=== PATIENT | female | born 1930 | race Caucasian/White ===

== ENCOUNTER 2017-08-21 15:28 | Inpatient (IN) | payer MEDICARE, BC ==
[~2017-08-21] VITALS: Ht 172.7 cm; Wt 61.7 kg
--- NOTE | 2017-08-21 15:40 | NUR ---
radha from home dt witnessed syncopal episode while using bathroom. Patient is a/ox 3 at this time, breathing even and unlabored. No SOB. vitals stable, NAD. No neuro deficits noted. Safety and comfort measures in place. MD at bedside for eval.
[2017-08-21 15:45] LABS: BASOPHILS % (AUTO) 0.5 % (0.0-2.0); EOSINOPHILS # (AUTO) 0.1 /CMM (0.0-0.7); EOSINOPHILS % (AUTO) 1.4 % (0.0-6.0); HEMATOCRIT 38 % (33-45); HEMOGLOBIN 12.6 g/dL (11.5-14.8); LYMPHOCYTES # (AUTO) 1.7 /CMM (0.8-4.8); LYMPHOCYTES % (AUTO) 20.3 % (20.0-44.0); MEAN CORPUSCULAR HEMOGLOBIN 28 PG (26.0-33.0); MEAN CORPUSCULAR HGB CONC 33 g/dl (31.0-36.0); MEAN CORPUSCULAR VOLUME 83 fL (82-100); MONOCYTES # (AUTO) 0.6 /CMM (0.1-1.30); MONOCYTES % (AUTO) 6.6 % (2.0-12.0); NEUTROPHILS % (AUTO) 71.2 % (43.0-81.0); PLATELET COUNT (AUTO) 185 /CMM (150-450); RDW COEFFICIENT OF VARIATION 13.8 (11.5-15.0); RED BLOOD CELL COUNT(AUTO) 4.55 MIL/uL (4.0-5.2); WHITE BLOOD COUNT (AUTO) 8.4 K/uL (4.3-11.0)
[2017-08-21 15:55] LABS: CALCIUM, SERUM 8.9 mg/dL (8.5-10.1); CARBON DIOXIDE 28 mmol/L (21-32); CHLORIDE 105 mmol/L (98-107); CREATININE 0.8 mg/dL (0.6-1.3); GLUCOSE 129 mg/dL (74-106); POTASSIUM 3.6 mmol/L (3.5-5.1); SODIUM SERUM 139 mmol/L (136-145); UREA NITROGEN, BLOOD 27 mg/dL (7-18)
[2017-08-21 15:59] LABS: INR 0.98 (0.85-1.15)
[2017-08-21] MEDS ORDERED: IV NS 0.9% 500 ML BAG IV ONE (16:00)
[2017-08-21 16:03] LABS: TROPONIN I < 0.017 ng/mL (0.00-0.056)
[2017-08-21 16:11] LABS: ALANINE AMINOTRANSFERASE 33 U/L (12-78); ALBUMIN 3.3 g/dL (3.4-5.0); ALKALINE PHOSPHATASE 94 U/L (46-116); ASPARTATE AMINOTRANSFERASE 28 U/L (15-37); BILIRUBIN,DIRECT 0.2 mg/dL (0.0-0.2); BILIRUBIN,TOTAL 0.4 mg/dL (0.2-1.0)
[2017-08-21] MEDS ORDERED: ESCI5TAB PO (16:22)
[2017-08-21] MEDS ORDERED: RIVA6CAP5 PO (16:22)
[2017-08-21] MEDS ORDERED: MEMA28CA PO (16:22)
[2017-08-21] MEDS ORDERED: ASPI-1152 PO (16:22)
[2017-08-21] MEDS ORDERED: SIMV20TA6 PO (16:22)
[2017-08-21] MEDS ORDERED: CHOL200026 PO (16:22)
[2017-08-21] MEDS ORDERED: OLAN2.5T3 PO (16:22)
--- NOTE | 2017-08-21 17:03 | NUR ---
PAGED EPIC FOR PANEL
--- NOTE | 2017-08-21 17:07 | NUR ---
CALLED NURSE SUP FOR TELE BED
[2017-08-21] MEDS ORDERED: IV NS 0.9% 1,000 ML IV PRN (17:14)
[2017-08-21] MEDS ORDERED: MAG HYDROX/AL HYDROX/SIMETH 30 ML UDC PO PRN (17:30)
[2017-08-21] MEDS ORDERED: HYDROCODONE/APAP 5/325MG 1 EACH TABLET PO PRN (17:30)
[2017-08-21] MEDS ORDERED: OLANZAPINE 2.5 MG TABLET PO SCH (17:30)
[2017-08-21] MEDS ORDERED: ACETAMINOPHEN 325 MG TABLET PO PRN (17:30)
[2017-08-21] MEDS ORDERED: ONDANSETRON HCL/PF 4 MG/2 ML VIAL IVP PRN (17:30)
[2017-08-21] MEDS ORDERED: Z GUARD REMEDY 2 OZ OINT TP PRN (17:30)
[2017-08-21] MEDS ORDERED: MAGNESIUM HYDROXIDE 30 ML UDC PO PRN (17:30)
--- NOTE | 2017-08-21 17:47 | NUR ---
PATIENT TRANSPORTED TO [facility] VIA ACLS PROTOCOL. RNCHERELLE TO PROVIDE ROBERT.
--- NOTE | 2017-08-21 17:50 | NUR ---
TELE/RN OPENING NOTES PT RECEIVED TO UNIT FROM ER VIA [facility]INATA. A/OX1-2, ON ROOM AIR, BREATHING EVEN AND UNLABORED. DENIES PAIN, IN NO SIGNS OF DISTRESS. IV TO LAC PATENT AND INTACT. PLACED ON TELE MONITOR, SHOWING SINUS RHYTHM WITH HR 83. ORIENTED PT AND FAMILY TO ROOM AND CALL LIGHT. MIRI WYNN [phone], CELL= [phone] BED IN LOW/LOCKED POSITION WITH CALL LIGHT IN REACH. SIDE RAILS UPX3 AND BED ALARM ON FOR SAFETY. WILL CONTINUE TO MONITOR
[2017-08-21 18:00] VITALS: BP 148/70
[2017-08-21] MEDS: CHOLECALCIFEROL 1,000 UNIT TABLET (VIT D3) PO SCH (18:47)
[2017-08-21 20:00] VITALS: BP 131/70
[2017-08-21] MEDS ORDERED: QUETIAPINE FUMARATE 25 MG TABLET PO PRN (21:00)
[2017-08-21] MEDS ORDERED: LORAZEPAM INJ 2 MG/ML VIAL IV ONE (21:00)
--- NOTE | 2017-08-21 21:00 | NUR ---
TELE/RN NOTES PT BECOMING AGITATED, ATTEMPTING TO PULL OUT IV, UNCOOPERATIVE WITH CARE. DAUGHTER AT BEDSIDE FOR SUPPORT. MULTIPLE ATTEMPTS TO REDIRECT BUT UNSUCCESSFUL. SPOKE TO DR MONTOYA WITH ORDERS FOR ONE TIME DOSE OF ATIVAN 0.5MG IV AND PRN SEROQUEL 12.5MG Q6H PO. ORDERS READBACK PER PROTOCOL. WILL CARRY OUT
--- NOTE | 2017-08-21 21:15 | NUR ---
TELE/RN NOTES TECH AT BEDSIDE FOR CAROTID ULTRASOUND
[2017-08-21] MEDS ORDERED: SIMVASTATIN 20 MG TABLET PO SCH (22:00)
[2017-08-22] VITALS: BP 118/59
[2017-08-22 04:00] VITALS: BP 135/66
--- NOTE | 2017-08-22 07:00 | NUR ---
TELE/RN CLOSING NOTES PT AWAKE, SITTING UP IN BED. A/OX1, DAUGHTER AT BEDSIDE. CALM AT THIS TIME. ON TELE MONITOR SHOWING SR WITH HR 66. ON ROOM AIR, BREATHING EVEN AND UNLABORED. NO S/S OF SOB OR PAIN. KEPT CLEAN AND DRY DURING SHIFT. TURNED/REPOSITIONED Q2H. IV TO LAC PATENT AND INTACT RUNNING IVF ORDERED. KEPT PT COMFORTABLE, ALL NEEDS MET. BED IN LOW/LOCKED POSITIONED WITH CALL LIGHT IN REACH. SIDE RAILS UPX2 WITH BED ALARM ON FOR SAFETY. ENDORSED TO DAY SHIFT RN ROBERT.
--- NOTE | 2017-08-22 07:15 | NUR ---
telephoto engineer initial notes Received patient in bed, awake, head of bed elevated, no SOB or distress noted, on room air and tolerated well. Alert and oriented x 1, daughter at bedside. IV intact and patent, IVF infusing well. On tele monitor SR heart rate of 66, no complaint of pain or discomfort at this time. Patient is NPO at this time for cardiac consult. Kept patient clean and comfortable in bed, call light with in patient reach, will continue to monitor accordingly.
[2017-08-22 08:00] VITALS: BP 125/61
[2017-08-22] MEDS ORDERED: IV NS 0.9% 1,000 ML IV PRN (08:15)
[2017-08-22 08:44] LABS: BASOPHILS % (AUTO) 0.6 % (0.0-2.0); EOSINOPHILS # (AUTO) 0.1 /CMM (0.0-0.7); EOSINOPHILS % (AUTO) 1.1 % (0.0-6.0); HEMATOCRIT 39 % (33-45); HEMOGLOBIN 13.1 g/dL (11.5-14.8); LYMPHOCYTES # (AUTO) 1.1 /CMM (0.8-4.8); LYMPHOCYTES % (AUTO) 15.6 % (20.0-44.0); MEAN CORPUSCULAR HEMOGLOBIN 29 PG (26.0-33.0); MEAN CORPUSCULAR HGB CONC 34 g/dl (31.0-36.0); MEAN CORPUSCULAR VOLUME 84 fL (82-100); MONOCYTES # (AUTO) 0.4 /CMM (0.1-1.30); MONOCYTES % (AUTO) 6.1 % (2.0-12.0); NEUTROPHILS # (AUTO) 5.4 /CMM (1.8-8.9); NEUTROPHILS % (AUTO) 76.6 % (43.0-81.0); PLATELET COUNT (AUTO) 177 /CMM (150-450); RDW COEFFICIENT OF VARIATION 14.6 (11.5-15.0); RED BLOOD CELL COUNT(AUTO) 4.61 MIL/uL (4.0-5.2); WHITE BLOOD COUNT (AUTO) 7.1 K/uL (4.3-11.0)
[2017-08-22 08:52] LABS: CALCIUM, SERUM 8.7 mg/dL (8.5-10.1); CARBON DIOXIDE 27 mmol/L (21-32); CHLORIDE 111 mmol/L (98-107); CREATININE 0.8 mg/dL (0.6-1.3); GLUCOSE 92 mg/dL (74-106); MAGNESIUM 2.1 mg/dL (1.8-2.4); PHOSPHORUS 3.2 mg/dL (2.5-4.9); POTASSIUM 4.2 mmol/L (3.5-5.1); SODIUM SERUM 147 mmol/L (136-145); UREA NITROGEN, BLOOD 20 mg/dL (7-18)
[2017-08-22] MEDS: CHOLECALCIFEROL 1,000 UNIT TABLET (VIT D3) PO SCH (08:54)
[2017-08-22] MEDS ORDERED: ASPIRIN EC 81 MG TABLET.DR PO SCH (09:00)
[2017-08-22] MEDS ORDERED: RIVASTIGMINE TARTRATE 6 MG PO SCH (09:00)
[2017-08-22] MEDS ORDERED: MEMANTINE HCL 5 MG TABLET PO SCH (09:00)
[2017-08-22] MEDS ORDERED: ESCITALOPRAM OXALATE (10 MG) 10 MG TABLET PO SCH (09:00)
--- NOTE | 2017-08-22 14:51 | NUR ---
ms necktie turner notes Discharge instructions given to Jama and able to understand instructions. Signed discharge paper and belonging list. Informed to follow up with primary health care physician in 1-2 weeks. Skin is intact no need for picture. Pneumonia and flu vaccine not given due to already received 02/2017 for both vaccines. Patient left via wheelchair accompanied by and daughter and VP [employer] assigned. left in stable condition. No complaint of pain or discomfort, nor chest pain. MD and charge nurse aware. Vital sings checked and recorded.
== END 2017-08-22 14:40 | disposition home or self-care (01) | DRG 73 ==
LOC: ER 15:30 → TELE 17:40 → MED 08-22 09:39
PROVIDERS: ADMIT Internal Medicine; ATTEND Internal Medicine
DX: G90.8 Other disorders of autonomic nervous system (principal); N17.0 Acute kidney failure with tubular necrosis; E43 Unspecified severe protein-calorie malnutrition; G30.9 Alzheimer's disease, unspecified; E86.0 Dehydration; F02.80 Dementia in other diseases classified elsewhere, unspecified severity, without behavioral disturbance, psychotic disturbance, mood disturbance, and anxiety; Z79.82 Long term (current) use of aspirin; Z79.899 Other long term (current) drug therapy; Z68.20 Body mass index [BMI] 20.0-20.9, adult; E78.5 Hyperlipidemia, unspecified; F32.9 Major depressive disorder, single episode, unspecified; Z91.81 History of falling
CPT/HCPCS: 36415; 71045-TC; 80048-TC; 80076-TC; 83735-TC; 84100-TC; 84484-TC; 85025-TC; 85730-TC; 87081-TC; 93307-TC; 93880-TC; A4606; J7030; J7040; Z7610